=== PATIENT | female | born 1995 | race Caucasian/White ===

== ENCOUNTER 2017-11-22 21:47 | Emergency (ER) | payer BC, OTHER ==
[~2017-11-22] VITALS: Ht 165.1 cm; Wt 99.8 kg
--- OUTSIDE RECORDS SUMMARY | 2017-11-22 21:54 | XMS REPORT ---
Author CHACHO Tubbs [facility] eClinicalWorks Address Unknown Phone Unavailable Care Team Providers Care Religious Healer Name Role Phone CHACHO JONES CP Unavailable Allergies No Known Allergies Problems Problem Type Condition Code Onset Dates Condition Status Problem Routine health maintenance Z00.00 Active Problem Family history of diabetes mellitus Z83.3 Active Problem Encounter for contraceptive management, unspecified Z30.9 Active Assessment Hyperkalemia E87.5 Active Problem Family history of heart disease Z82.49 Active Problem Hyperkalemia E87.5 Active Medications No Known Medications Results No Known Results Summary Purpose eClinicalWorks Submission
--- OUTSIDE RECORDS SUMMARY | 2017-11-22 21:54 | XMS REPORT ---
Author Author ELDA ALLEN [facility] eClinicalWorks Address Unknown Phone Unavailable Care Team Providers Care Slip Operator Name Role Phone ELDA ALLEN CP Unavailable Allergies, Adverse Reactions, Alerts Substance Reaction Event Type N.K.D.A. Info Not Available Non Drug Allergy Problems Problem Type Condition Code Onset Dates Condition Status Assessment Family history of diabetes mellitus Z83.3 Active Assessment Family history of heart disease Z82.49 Active Problem Routine health maintenance Z00.00 Active Problem Family history of diabetes mellitus Z83.3 Active Problem Encounter for contraceptive management, unspecified Z30.9 Active Assessment Encounter for contraceptive management, unspecified Z30.9 Active Assessment Routine health maintenance Z00.00 Active Problem Family history of heart disease Z82.49 Active Problem Hyperkalemia E87.5 Active Medications Medication Code System Code Instructions Start Date End Date Status Dosage Sprintec [address] [facility] [id number] 0.25-35 MG-MCG Orally Once a day November 17, 2014 1 tablet Procedures Procedure Coding System Code Date ASSAY OF PROLACTIN CPT-4 36920 November 09, 2015 VENIPUNCT, ROUTINE* CPT-4 53397 November 09, 2015 Office Visit, Est Pt., Level 3 CPT-4 21129 November 09, 2015 GLYCATED HEMOGLOBIN TEST CPT-4 67325 November 09, 2015 URINE TEST CPT-4 14658 November 09, 2015 GONADOTROPIN (FSH) CPT-4 38964 November 09, 2015 LIPID PANEL CPT-4 46895 November 09, 2015 GONADOTROPIN (LH) CPT-4 99219 November 09, 2015 COMPLETE CBC W/AUTO DIFF WBC CPT-4 33934 November 09, 2015 ASSAY OF INSULIN CPT-4 67726 November 09, 2015 ASSAY THYROID STIM HORMONE CPT-4 18172 November 09, 2015 COMPREHEN METABOLIC PANEL CPT-4 53779 November 09, 2015 Vital Signs Date/Time: November 09, 2015 Temperature 99.0 F Weight 208.6 lbs Height 66 in BMI 33.67 Index Blood Pressure Diastolic 78 mmHg Blood Pressure Systolic 116 mmHg Cardiac Monitoring Heart Rate 70 bpm Results Name Result Date Reference Range Unit Abnormality Flag TEST, URINE (IN HOUSE) ----RESULTS negative [id number] ----Lot # [id number] ----Control + [id number] ----Exp date [id number] ROUTINE VENIPUNCTURE Summary Purpose eClinicalWorks Submission
--- NOTE | 2017-11-22 23:15 | ED Psychosocial ---
General Chief Complaint: Psych/Social Disorder Stated Complaint: PANIC ATTACK Nursing Triage Note: pt presents to er with complaint of panic attack. states she has never been treated for them, but has had them before. Source: patient, spouse (stewart) Exam Limitations: no limitations History of Present Illness Date Seen by Provider: Nov 22, 2017 Time Seen by Provider: 22:52 Initial Comments The patient presents to the ER by private conveyance with a chief complaint that tonight she was having a panic attack. She has a very brief history of panic attacks over the last 2-3 months where she has had 3 now. She's had her first 1 was not that bad but the second one was pretty bad and tonight was absolutely terrifying to her. Her fianc talked her down through some breathing exercises. She has never seen a doctor about this until now. She is not having any suicidal ideation nor she having any depression, loss of interest in her hobbies are interests. She is not on any medications. She does not use any recreational drugs. She says she does have a history of suicidal ideation and inpatient psychiatric hospitalization many many years ago but nothing related to suicide attempts it was from cutting. She has not been doing any cutting tonight. Allergies and Home Medications Patient Home Medication List Home Medication List Reviewed: Yes Constitutional: No chills, No diaphoresis EENTM: No ear discharge, No hearing loss, No ear pain Respiratory: No cough, No short of breath Cardiovascular: No chest pain, No edema Gastrointestinal: No abdominal pain, No constipation, No diarrhea Genitourinary: No discharge, No dysuria Past Zcmzcrn-Upvjzr-Aypqdx Hx Patient Social History Alcohol Use: Occasionally Uses Recreational Drug Use: Yes Drug of Choice: marijuana Smoking Status: Current Everyday Smoker Recent Foreign Travel: No Contact w/Someone Who Travel: No Recent Infectious Disease Expo: No Recent Hopitalizations: No Immunizations Up To Date PED Vaccines UTD: Yes Seasonal Allergies Seasonal Allergies: No Past Medical History Surgeries: No Respiratory: No Cardiac: No Neurological: No Genitourinary: No Gastrointestinal: No Musculoskeletal: No Endocrine: No HEENT: No Cancer: No Psychosocial: No Integumentary: No Blood Disorders: No Physical Exam Vital Signs Vital Signs - First Documented 11/22/17 22:10 Temp 98.2 Pulse 102 Resp 20 B/P (MAP) 128/82 (97) Pulse Ox 100 O2 Delivery Room Air Capillary Refill : Less Than 3 Seconds General Appearance: WD/WN, no apparent distress HEENT: PERRL/EOMI, pharynx normal Neck: full range of motion, normal inspection Respiratory: no respiratory distress, no accessory muscle use Cardiovascular: normal peripheral pulses, regular rate, rhythm, no edema Gastrointestinal: non tender, soft Extremities: non-tender, normal inspection, normal capillary refill Neurologic/Psychiatric: alert, oriented x 3 Behavior/Eye Contact: cooperative, good eye contact, normal speech Thoughts/Hallucinations: normal thought pattern, no apparent hallucination Skin: normal color, warm/dry Progress/Results/Core Measures Vital Signs/I&O 11/22/17 22:10 Temp 98.2 Pulse 102 Resp 20 B/P (MAP) 128/82 (97) Pulse Ox 100 O2 Delivery Room Air Blood Pressure Mean: 97 Progress Note : Time: 23:11 Progress Note We have discussed at length about getting an outpatient workup of her panic disorder area we have given her techniques to practice for cognitive behavioral therapy as well as counseling. We will provide her some Vistaril and she says she is going to follow up in the next couple weeks with a primary care provider so we'll put off doing any laboratory examination tonight. She is not currently having a panic attack. Departure Impression Primary Impression: Panic attack Disposition: 01 HOME, SELF-CARE Condition: Stable Departure-Patient Inst. Decision time for Depature: 23:14 Referrals: NO,LOCAL PHYSICIAN (PCP/Family) Primary Care Physician Patient Instructions: Panic Disorder (DC) Add. Discharge Instructions: You can use the Vistaril 1 tablet every 6 hours as needed for first sign of panic disorder. Follow-up with primary care physician in the next couple weeks to discuss further evaluation and looking for a medical cause of your panic disorder as well as referral for counseling. All discharge instructions reviewed with patient and/or family. Voiced understanding. Scripts Hydroxyzine Pamoate (Vistaril) 25 Mg Capsule 25 MG PO Q6H PRN for ANXIETY, #30 CAP 0 Refills Prov: JENISE ABARCA 11/22/17 JENISE ABARCA Nov 22, 2017 23:15
[2017-11-22] MEDS ORDERED: HYDR25CA PO (23:16)
[2017-11-22] MEDS ORDERED: RX-HYDROXYZINE PAMOATE 25 MG CAP #4 PO STA (23:17)
[2017-11-22 23:40] VITALS: BP 128/82
== END 2017-11-22 23:40 | disposition home or self-care (01) ==
LOC: ER 21:50
DX: F41.0 Panic disorder [episodic paroxysmal anxiety] (principal); F12.10 Cannabis abuse, uncomplicated; F17.200 Nicotine dependence, unspecified, uncomplicated; Z91.5 Personal history of self-harm
CPT/HCPCS: 99283

== ENCOUNTER 2017-12-01 11:17 | Emergency (ER) | payer BC ==
[~2017-12-01] VITALS: Ht 165.1 cm; Wt 99.8 kg
[~2017-12-01 11:17] MED LIST: HYDR25CA PO
[2017-12-01 12:01] LABS: BILIRUBIN,URINE NEGATIVE (NEGATIVE); CLARITY,URINE SLIGHTLY CLOUDY; COLOR,URINE YELLOW; GLUCOSE, URINE (UA) NEGATIVE (NEGATIVE); KETONES,URINE 2+ (NEGATIVE); LEUKOCYTE ESTERASE ,URINE 1+ (NEGATIVE); NITRITE,URINE NEGATIVE (NEGATIVE); PH,URINE 8 (5-9); PROTEIN,URINE NEGATIVE (NEGATIVE); UROBILINOGEN,URINE NORMAL (NORMAL)
[2017-12-01] MEDS ORDERED: SERT20OR PO (12:01)
[2017-12-01 12:04] LABS: HCG,QUALITATIVE URINE NEGATIVE (NEGATIVE)
[2017-12-01 12:10] LABS: AMORPHOUS SEDIMENT,UR MOD AMOR PHOSPHATE /LPF; BACTERIA,URINE FEW /HPF
[2017-12-01 12:14] LABS: AMPHETAMINE SCREEN, URINE NEGATIVE (NEGATIVE); BARBITURATE SCREEN URINE NEGATIVE (NEGATIVE); BENZODIAZEPINES SCREEN URINE NEGATIVE (NEGATIVE); CANNABINOID SCREEN, URINE NEGATIVE (NEGATIVE); COCAINE SCREEN URINE NEGATIVE (NEGATIVE); METHADONE STAT NEGATIVE (NEGATIVE); METHAMPHETAMINE SCREEN URINE S NEGATIVE (NEGATIVE); OPIATE SCREEN URINE NEGATIVE (NEGATIVE); OXYCODONE STAT NEGATIVE (NEGATIVE); PROPOXYPHENE STAT NEGATIVE (NEGATIVE); TRICYCLIC ANTIDEPRESSANTS SCRE NEGATIVE (NEGATIVE)
[2017-12-01 12:16] LABS: BASOPHILS % (AUTO) 0 % (0-10); EOSINOPHILS # (AUTO) 0.1 10^3/uL (0.0-0.3); EOSINOPHILS % (AUTO) 1 % (0-10); HEMATOCRIT 39 % (35-52); HEMOGLOBIN 13.5 G/DL (11.5-16.0); LYMPHOCYTES # (AUTO) 1.7 X 10^3 (1.0-4.0); LYMPHOCYTES % (AUTO) 24 % (12-44); MEAN CORPUSCULAR HEMOGLOBIN 29 PG (25-34); MEAN CORPUSCULAR HGB CONC 35 G/DL (32-36); MEAN CORPUSCULAR VOLUME 85 FL (80-99); MEAN PLATELET VOLUME 10.2 FL (7.4-10.4); MONOCYTES # (AUTO) 0.4 X 10^3 (0.0-1.0); MONOCYTES % (AUTO) 5 % (0-12); NEUTROPHILS # (AUTO) 4.9 X 10^3 (1.8-7.8); NEUTROPHILS % (AUTO) 69 % (42-75); PLATELET COUNT 296 10^3/uL (130-400); RED BLOOD COUNT 4.62 10^6/uL (4.35-5.85); RED CELL DISTRIBUTION WIDTH 12.7 % (10.0-14.5)
[2017-12-01 12:39] LABS: ALANINE AMINOTRANSFERASE 12 U/L (0-55); ALBUMIN 4.1 GM/DL (3.2-4.5); ALKALINE PHOSPHATASE 87 U/L (40-136); BILIRUBIN,TOTAL 0.8 MG/DL (0.1-1.0); BUN/CREATININE RATIO 13; CALCIUM 9.5 MG/DL (8.5-10.1); CARBON DIOXIDE 21 MMOL/L (21-32); CHLORIDE 109 MMOL/L (98-107); CREATININE SERUM 0.75 MG/DL (0.60-1.30); GFR ESTIMATED > 60; GLUCOSE 102 MG/DL (70-105); POTASSIUM 3.9 MMOL/L (3.6-5.0); SALICYLATE < 5.0 MG/DL (5.0-20.0); SODIUM 140 MMOL/L (135-145); TOTAL PROTEIN 7.3 GM/DL (6.4-8.2)
[2017-12-01 12:58] LABS: ACETAMINOPHEN < 10 UG/ML (10-30)
--- NOTE | 2017-12-01 13:34 | ED Psychosocial ---
General Chief Complaint: Psych/Social Disorder Stated Complaint: CP Nursing Triage Note: PATIENT STATES THAT SHE HAS BEEN HAVING PANIC ATTACKS OFF AND ON SINCE AUGUST WHEN SHE "GOT REALLY HIGH" AND DID "MARIJUANA LACED WITH SOMETHING ELSE." STATES HE CANT CALM DOWN, HAS PRESSURE IN HER HEAD. STATES THAT SHE HAS FEARS OF A HEART ATTACK BECAUSE SHE HAS HAD FAMILY MEMBERS HAVE HEART ATTACKS. SHE DOES NOT CURRENTLY HAVE PAIN IN HER CHEST. Source: patient Exam Limitations: no limitations History of Present Illness Date Seen by Provider: December 01, 2017 Time Seen by Provider: 13:34 Initial Comments 22 yo female patient presents to the ED with c/o having panic attacks intermittently since August after smoking "marijuana which she thinks was laced with something." Patient was seen in the emergency department by Dr. Rogers on 11/22/17 for similar symptoms. Patient was also seen yesterday by Natividad Fair APRN and prescribed Zoloft and clonazepam. Patient reports taking her first dose of Zoloft last night and taking 0.5 tablets of clonazepam last night 2 doses. Denies taking any of these medications today. Patient is supposed to follow-up with Natividad Fair APRN in one month. Patient denies current suicidal ideation, but states she does have suicidal thoughts that " come and go". Denies a plan to commit suicide. Denies homicidal ideation. Patient does report having a sore throat, nasal congestion, and cough over the last week. She has taken DayQuil a couple of times this week, but reports palpitations and worsened anxiety. Patient reports when she feels "panicky" she begins hyperventilating with subsequent chest pain, tingling in the extremities, and head pressure. Patient initially was concerned about having a heart attack due to multiple family members having heart attacks. Patient's mother is in the room and reports patient's "whole family" on her father's side has moderate to severe anxiety and depression. Patient does have a history of self-inflicted cutting, but denies any recently. Denies being under increased stress, however, states they moved into a new house within the last couple of weeks. Has noticed her symptoms being worse since moving. Timing/Duration: other (onset in August) Severity: moderate (moderate to severe symptoms intermittently.) Associated Symptoms: anxiety, impaired concentration, insomnia Allergies and Home Medications Allergies Coded Allergies: No Known Drug Allergies (Unverified , 11/22/17) Home Medications Amoxicillin 500 Mg Capsule, 1,000 MG PO TID Prescribed by: MARY CARRERO on 12/01/17 0300 Patient Home Medication List Home Medication List Reviewed: Yes (patient filled clonazepam 0.5 mg 1/2-1 tab po q6h prn anxiety on 11/30/17) Constitutional: No chills, No fever; malaise EENTM: nose congestion, throat pain; No ear pain, No hoarseness Respiratory: cough; No dyspnea on exertion, No phlegm, No short of breath, No wheezing Cardiovascular: chest pain; No edema; palpitations; No syncope Gastrointestinal: No abdominal pain, No constipation, No diarrhea; loss of appetite; No nausea, No vomiting Genitourinary: no symptoms reported Musculoskeletal: no symptoms reported Skin: no symptoms reported Psychiatric/Neurological: See HPI, Anxiety, Depressed; Denies Headache, Denies Numbness, Denies Paresthesia, Denies Seizure, Denies Tingling, Denies Weakness All Other Systems Reviewed Negative Unless Noted: Yes (Negative excepted noted.) Past Qwchyah-Zkbkmi-Ijurhm Hx Patient Social History Alcohol Use: Denies Use Recreational Drug Use: Yes Drug of Choice: marijuana Smoking Status: Never a Smoker 2nd Hand Smoke Exposure: No Recent Foreign Travel: No Contact w/Someone Who Travel: No Recent Infectious Disease Expo: No Recent Hopitalizations: No Physical Abuse: No Sexual Abuse: No Immunizations Up To Date PED Vaccines UTD: Yes Seasonal Allergies Seasonal Allergies: No Past Medical History Surgeries: No Respiratory: No Cardiac: No Neurological: No Genitourinary: No Gastrointestinal: No Musculoskeletal: No Endocrine: No HEENT: No Cancer: No Psychosocial: Yes (PANIC ATTACKS, self inflicted "cutting") Anxiety, Depression Nursing Suicide Risk Score: 0 Integumentary: No Blood Disorders: No Family Medical History Reviewed and Corrections made Psychiatric Problems (paternal grandmother, father, and siblings all suffer from depression and anxiety.) Physical Exam Vital Signs Vital Signs - First Documented 12/01/17 11:22 Temp 97.7 Pulse 81 Resp 18 B/P (MAP) 143/64 (90) Pulse Ox 99 O2 Delivery Room Air Capillary Refill : Less Than 3 Seconds General Appearance: WD/WN, no apparent distress HEENT: PERRL/EOMI, TMs normal, other ((+) nasal congestion with inflamed nasal mucosa bilaterally. (+) pharyngeal erythema with left tonsillar exudates. 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, no motor/sensory deficits, alert, oriented x 3, depressed affect Appearance/Memory: appropriate appearance, appropriate insight, neat, no memory impairment Behavior/Eye Contact: cooperative, avoids eye contact, decreased rate of speech Thoughts/Hallucinations: normal thought pattern, no apparent hallucination Skin: normal color, warm/dry Progress/Results/Core Measures Results/Orders Lab Results Laboratory Tests Test 12/01/17 11:53 12/01/17 12:00 Range/Units Urine Color YELLOW Urine Clarity SLIGHTLY CLOUDY Urine pH 8 5-9 Urine Specific [place] 1.010 L 1.016-1.022 Urine Protein NEGATIVE NEGATIVE Urine Glucose (UA) NEGATIVE NEGATIVE Urine Ketones 2+ H NEGATIVE Urine Nitrite NEGATIVE NEGATIVE Urine Bilirubin NEGATIVE NEGATIVE Urine Urobilinogen NORMAL NORMAL MG/DL Urine Leukocyte Esterase 1+ H NEGATIVE Urine RBC (Auto) NEGATIVE NEGATIVE Urine RBC NONE /HPF Urine WBC 2-5 /HPF Urine Squamous Epithelial Cells 2-5 /HPF Urine Crystals PRESENT H /LPF Urine Amorphous Sediment MOD [place]ITA PHOSPHATE H /LPF Urine Bacteria FEW H /HPF Urine Casts NONE /LPF Urine Mucus NEGATIVE /LPF Urine Culture Indicated NO Urine Test NEGATIVE NEGATIVE Urine Opiates Screen NEGATIVE NEGATIVE Urine Oxycodone Screen NEGATIVE NEGATIVE Urine Methadone Screen NEGATIVE NEGATIVE Urine Propoxyphene Screen NEGATIVE NEGATIVE Urine Barbiturates Screen NEGATIVE NEGATIVE Ur Tricyclic Antidepressants Screen NEGATIVE NEGATIVE Urine Phencyclidine Screen NEGATIVE NEGATIVE Urine Amphetamines Screen NEGATIVE NEGATIVE Urine Methamphetamines Screen NEGATIVE NEGATIVE Urine Benzodiazepines Screen NEGATIVE NEGATIVE Urine Cocaine Screen NEGATIVE NEGATIVE Urine Cannabinoids Screen NEGATIVE NEGATIVE White Blood Count 7.0 4.3-11.0 10^3/uL Red Blood Count 4.62 4.35-5.85 10^6/uL Hemoglobin 13.5 11.5-16.0 G/DL Hematocrit 39 35-52 % Mean Corpuscular Volume 85 80-99 FL Mean Corpuscular Hemoglobin 29 25-34 PG Mean Corpuscular Hemoglobin Concent 35 32-36 G/DL Red Cell Distribution Width 12.7 10.0-14.5 % Platelet Count 296 130-400 10^3/uL Mean Platelet Volume 10.2 7.4-10.4 FL Neutrophils (%) (Auto) 69 42-75 % Lymphocytes (%) (Auto) 24 12-44 % Monocytes (%) (Auto) 5 0-12 % Eosinophils (%) (Auto) 1 0-10 % Basophils (%) (Auto) 0 0-10 % Neutrophils # (Auto) 4.9 1.8-7.8 X 10^3 Lymphocytes # (Auto) 1.7 1.0-4.0 X 10^3 Monocytes # (Auto) 0.4 0.0-1.0 X 10^3 Eosinophils # (Auto) 0.1 0.0-0.3 10^3/uL Basophils # (Auto) 0.0 0.0-0.1 10^3/uL Sodium Level 140 135-145 MMOL/L Potassium Level 3.9 3.6-5.0 MMOL/L Chloride Level 109 H 98-107 MMOL/L Carbon Dioxide Level 21 21-32 MMOL/L Anion Gap 10 5-14 MMOL/L Blood Urea Nitrogen 10 7-18 MG/DL Creatinine 0.75 0.60-1.30 MG/DL Estimat Glomerular Filtration Rate > 60 BUN/Creatinine Ratio 13 Glucose Level 102 70-105 MG/DL Calcium Level 9.5 8.5-10.1 MG/DL Total Bilirubin 0.8 0.1-1.0 MG/DL Aspartate Amino Transf (AST/SGOT) 13 5-34 U/L Alanine Aminotransferase (ALT/SGPT) 12 0-55 U/L Alkaline Phosphatase 87 40-136 U/L Total Protein 7.3 6.4-8.2 GM/DL Albumin 4.1 3.2-4.5 GM/DL TSH [place] Testing 1.35 0.35-4.94 UIU/ML Salicylates Level < 5.0 L 5.0-20.0 MG/DL Acetaminophen Level < 10 L 10-30 UG/ML Serum Alcohol < 10 <10 MG/DL My Orders Orders - MARY CARRERO Ua Culture If Indicated (12/01/17 11:46) Cbc With Automated Diff (12/01/17 11:46) Comprehensive Metabolic Panel (12/01/17 11:46) Alcohol (12/01/17 11:46) Drug Screen Stat (Urine) (12/01/17 11:46) Acetaminophen (12/01/17 11:46) Salicylate (12/01/17 11:46) Ekg Tracing (12/01/17 11:46) Hcg,Qualitative Urine (12/01/17 11:46) Thyroid Analyzer (12/01/17 11:46) Lorazepam Tablet (Ativan Tablet) (12/01/17 14:00) Medications Given in ED Current Medications Medications Dose Ordered Sig/Jovon Route Start Time Stop Time Status Last Admin Dose Admin Lorazepam 0.5 mg ONCE ONCE PO 12/01/17 14:00 12/01/17 14:01 DC 12/01/17 14:01 0.5 MG Vital Signs/I&O 12/01/17 12/01/17 11:22 14:43 Temp 97.7 97.7 Pulse 81 81 Resp 18 18 B/P (MAP) 143/64 (90) 143/64 (90) Pulse Ox 99 99 O2 Delivery Room Air Blood Pressure Mean: 90 Initial ECG Impression Date: December 01, 2017 Initial ECG Impression Time: 11:55 Initial ECG Rate: 79 Initial ECG Rhythm: Normal Sinus Initial ECG Intervals: Normal Initial ECG Impression: Normal Initial ECG Comparisson: No Previous ECG Available Comment Sinus rhythm. No STEMI noted. ECG reviewed with Dr. Avila. Departure Communication (Admissions) [id number] patient case discussed with Dwayne (Natividad Fair APRN's nurse) at [facility]. Dwayne states Natividad can see the patient tomorrow at 3:20 p.m. in their office for recheck and further management. All laboratory and diagnostic findings discussed with the patient and family. plan for dsch to home. Patient case discussed with him Austin, he agrees with the plan of care. Impression Primary Impression: Anxiety Additional Impression: Pharyngitis, acute Qualified Codes: J02.9 - Acute pharyngitis, unspecified Disposition: 01 HOME, SELF-CARE Condition: Improved Departure-Patient Inst. Decision time for Depature: 14:24 Referrals: NO,LOCAL PHYSICIAN (PCP/Family) Primary Care Physician Patient Instructions: Anxiety, Adult (DC), Sore Throat, Adult (DC) Add. Discharge Instructions: All discharge instructions reviewed with patient and/or family. Voiced understanding. Medications as instructed. Tylenol uddz-bpi-gvpmdye 1000 mg by mouth every 6 hours for pain or headache. Do not exceed 3000 mg of Tylenol in 24 hours. Ibuprofen 800 mg by mouth every 8 hours as needed for pain or headache. Avoid using DayQuil or NyQuil. Try using saline nasal spray and Afrin nasal spray [id number] for nasal congestion. You may use throat lozenges for throat pain as instructed by the plant utilities engineer. Continue medications as prescribed by Natividad Fair APRN. Follow-up with Natividad Fair APRN at [facility] tomorrow (December 02) at 3:20 p.m. for recheck. An appointment has already been scheduled for your. Return to the emergency department, contact the Crisis line ([phone]), or call 911 for worsened symptoms, thoughts of harming yourself, thoughts of harming others, or any other concerns. Scripts Amoxicillin (Amoxicillin) 500 Mg Capsule 1000 MG PO TID, #42 CAP 0 Refills Prov: MARY CARRERO 12/01/17 Work/School Note: Work Release Form Date Seen in the Emergency Department: December 01, 2017 Return to Work: December 03, 2017 Restrictions: No Restrictions MARY CARRERO December 01, 2017 13:34
[2017-12-01] MEDS ORDERED: LORazepam 0.5 MG (ATIVAN) TABLET PO ONE (14:00)
[2017-12-01] MEDS ORDERED: AMOX500C2 PO (14:25)
[2017-12-01 14:43] VITALS: BP 143/64
== END 2017-12-01 14:45 | disposition home or self-care (01) ==
LOC: EDUNIT# 11:17 → ER 11:20
DX: F41.9 Anxiety disorder, unspecified (principal); J02.9 Acute pharyngitis, unspecified; F12.10 Cannabis abuse, uncomplicated; F32.9 Major depressive disorder, single episode, unspecified
CPT/HCPCS: 36415; 80053; 80306; 80320; 80329; 81000; 84443; 84703; 85025; 93005

== ENCOUNTER 2022-11-25 05:06 | Inpatient (IN) | payer MEDICAID ==
[~2022-11-25 05:06] MED LIST changes: +AMOX500C2 PO; +SERT20OR PO
[2022-11-25 05:24] VITALS: BP 131/79
[2022-11-25] MEDS ORDERED: D5 LR IV SOLUTION 1,000 ML IV SCH (06:15)
[2022-11-25 06:16] LABS: MEAN CORPUSCULAR VOLUME 88 fL (80-99)
[2022-11-25 06:17] LABS: BASOPHILS % (AUTO) 0 % (0-10); EOSINOPHILS % (AUTO) 0 % (0-10); HEMATOCRIT 36 % (35-52); LYMPHOCYTES # (AUTO) 1.6 10^3/uL (1.0-4.0); LYMPHOCYTES % (AUTO) 14 % (12-44); MEAN CORPUSCULAR HEMOGLOBIN 30 pg (25-34); MEAN CORPUSCULAR HGB CONC 34 g/dL (32-36); MEAN PLATELET VOLUME 13.1 fL (9.0-12.2); MONOCYTES # (AUTO) 0.6 10^3/uL (0.0-1.0); MONOCYTES % (AUTO) 6 % (0-12); NEUTROPHILS # (AUTO) 9.2 10^3/uL (1.8-7.8); NEUTROPHILS % (AUTO) 80 % (42-75); PLATELET COUNT 100 10^3/uL (130-400); WHITE BLOOD COUNT 11.5 10^3/uL (4.3-11.0)
--- NOTE | 2022-11-25 06:27 | History & Physical-OB ---
OB - Chief Complaint & HPI Date/Time Date of Admission: Date of Admission: Date seen by a Provider: November 25, 2022 Time Seen by a Provider: 06:45 Chief Complaint/History OB-Reason for Admission/Chief: Rupture of Membranes Expected Date of Delivery: November 30, 2022 Gestational Age in Weeks: 39 Gestational Age in Days: 2 Admission Nurse Assessment Rev: Yes Allergies and Home Medications Allergies Coded Allergies: No Known Drug Allergies (Unverified , 11/22/17) Patient Home Medication List Home Medication List Reviewed: Yes Amoxicillin (Amoxicillin) 500 Mg Capsule, 1,000 MG PO TID Prescribed by: MARY CARRERO on 12/01/17 1425 Sertraline HCl (Zoloft) 20 Mg/1 Ml Oral.conc, 20 MG PO, (Reported) Entered as Reported by: NAYE STACY on 12/01/17 1201 OB - History Hx of Present Care: Yes Ultrasounds: Normal mid trimester US Obstetrical Complications: None Medical Complications: None Patient Past Medical History no chronic medical problems Social History/Family History 2nd Hand Smoke Exposure: No OB - Admission Exam Physical Exam HEENT: Moist Membranes Heart: Rhythm Normal Lungs: Clear Abdomen: Gravid Cervical Dilatation: 2cm Effacement: 50% Station: -3 Membranes: Ruptured Amniotic Fluid: Clear Heart Rate: 140's Accelerations: Accelerations Present Intensity: Mild Labs Laboratory Tests Test 11/25/22 05:55 Range/Units OB - Assessment/Plan/Diagnosis Assessment Assessment: rupture of membranes (at 39 weeks gestation) Admission Dx 1. IUP at term 39 weeks with SROM Admission Status: Inpatient Order (span 2 midnights) Reason for Inpatient Admission: L&D Plan Plan: Expectant Management Other Plan -epidural if desired -pitocin if necessary BRODERICK ROSENBAUM MD November 25, 2022 06:27
[2022-11-25 06:28] LABS: SMEAR SCAN COMMENT YES
[2022-11-25] MEDS ORDERED: OXYTOCIN PRE-MIX DRIP 500 ML IV ONE ×3 (09:14→15:53)
[2022-11-25] MEDS ORDERED: fentaNYL 2 mcg/ml BUPIVA 0.125 100 ML ONE (11:19)
[2022-11-25] MEDS ORDERED: fentaNYL INJ 100 MCG/2 ML AMP ONE ×2 (11:36→15:28)
[2022-11-25] MEDS ORDERED: CITRIC ACID/SOB CIT (BICITRA) 30 ML UDC ONE (15:00)
[2022-11-25] MEDS ORDERED: FAMOTIDINE 20MG/2ML IV (PEPCID) ONE (15:00)
[2022-11-25] MEDS ORDERED: METOCLOPRAMIDE INJ 10 MG/2 ML (REGLAN) ONE (15:00)
[2022-11-25] MEDS ORDERED: NS (IVPB) 50 ML ONE (15:01)
[2022-11-25] MEDS ORDERED: ceFAZolin INJECTION 2,000 MG ONE (15:01)
[2022-11-25] MEDS ORDERED: LIDOCAINE PF 2% 5 ML (XYLOCAINE) VIAL ONE ×2 (15:11→15:29)
[2022-11-25] MEDS ORDERED: LIDOCAINE 1% INJ 10 ML VIAL ONE (15:11)
[2022-11-25] MEDS ORDERED: KETOROLAC 30 MG/ML VIAL ONE (15:29)
[2022-11-25] MEDS ORDERED: BUPIVACAINE 0.5% 30 ML (SENSORCAINE) VIAL ONE (15:29)
[2022-11-25] MEDS ORDERED: OXYTOCIN PRE-MIX DRIP 500 ML IV SCH ×2 (16:15→18:00)
[2022-11-25 17:30] VITALS: BP 115/70
[2022-11-25 18:00] VITALS: BP 132/77
[2022-11-25] MEDS ORDERED: TETANUS,DIPTH,PERTUSS P/F (BOOSTRIX) 0.5 ML VIAL IM SCH (18:00)
[2022-11-25] MEDS ORDERED: MEASLES,MUMPS,RUBELLA 1 EA INJ SC SCH (18:00)
[2022-11-25] MEDS ORDERED: HYDROcodone/APAP 5 MG/325 MG (LORTAB) TAB ONE (18:45)
[2022-11-25] MEDS ORDERED: NALOXONE 0.4 MG/ML 1 ML (NARCAN) VIAL IV PRN (18:45)
[2022-11-25] MEDS: HYDROcodone/APAP 5 MG/325 MG (LORTAB) TAB PO PRN (18:47)
[2022-11-25] MEDS: KETOROLAC 30 MG/ML VIAL IV SCH (20:29)
[2022-11-25] MEDS: DOCUSATE SODIUM 100 MG (COLACE) CAP PO SCH (20:29)
[2022-11-25 20:33] VITALS: BP 134/80
[2022-11-25] MEDS: CATHETER FLUSH 10 ML SYR IV SCH ×2 (20:55→21:38)
--- NOTE | 2022-11-25 22:31 | OPERATIVE REPORT ---
PREOPERATIVE DIAGNOSES:. 1. A 27-year-old G1, P0 at 39 weeks and 2 days gestation. 2. intolerance of labor. POSTOPERATIVE DIAGNOSES: 1. A 27-year-old G1, P0 at 39 weeks and 2 days gestation. 2. intolerance of labor. PROCEDURE: Primary low transverse section. SURGEON: Gerry Funes DO. PAPER COATER: Dr. Chau Adler, who was necessary for manipulation and retraction throughout the procedure. ANESTHESIA: Epidural, which was bolused. ESTIMATED BLOOD LOSS: 400 mL. URINE OUTPUT: 100 mL clear at the end of the procedure. FLUIDS: 1000 mL lactated Ringer's solution. FINDINGS: A live male infant weighing 7 pounds 8 ounces, Apgars of 8 and 9. Grossly normal appearing uterus, bilateral fallopian tubes and ovaries. SPECIMEN SENT: Placenta. INDICATIONS FOR PROCEDURE: This 27-year-old female, who is a patient admitted for active labor by Dr. Adler. There were some prolonged heart rate decelerations. I was contacted to come and perform a urgently as the patient only made a dilation to 4 cm and was having prolonged heart rate deceleration, there was recovery. We were able to get the patient into the operating room where heart rate was found to be within normal limits; however, due to the recurrent distress, we decided to proceed. Risks had been discussed with the patient in detail and after all of her questions were answered, she was agreeable to proceed. Consent was obtained. The patient was taken to the operating room. OPERATIVE DESCRIPTION IN DETAIL Once in the operating room, epidural analgesia was found to be adequate, was placed in supine position with leftward tilt, prepped and draped in sterile fashion. A timeout was performed. Anesthesia was tested. I then made a Pfannenstiel skin incision with a knife and carried down to the underlying fascia using Bovie cautery. Fascial incision extended laterally using Bovie cautery. Superior aspect of fascial incision was then grasped with Yobani clamps, tented up and dissected off the underlying rectus muscles. The inferior aspect of the fascial incision was then grasped with Yobani clamps, tented up and dissected off the underlying rectus muscles. Rectus muscles were dissected down the midline using sharp dissection, which exposed the peritoneum, which I entered bluntly and extended using blunt traction. Jose Manuel ring retractor was placed in the peritoneal incision, which offers excellent lateral sidewall retraction. I identified lower uterine segment was found to be thinned out and make a low transverse incision to the vesicouterine peritoneum and bluntly dissected this off the lower uterine segment, creating a bladder flap and then proceeded with my myotomy until membranes are visualized, at which point I extended uterine incision laterally and superiorly using bandage scissors. Amniotomy was performed and in the process of doing this, the was found vertex presentation. With gentle fundal pressure, the 's head elevated up the incision where it was delivered through the incision, the nares and oropharynx were bulb suctioned. Anterior and posterior shoulders were delivered. The infant was brought to the operative field where the cord was doubly clamped and cut and infant was handed off to waiting nurses in attendance and Dr. Adler, who was present for delivery. Cord blood was collected. Three-vessel cord with intact placenta was delivered spontaneously thereafter. IV Pitocin was initiated to facilitate uterine contraction. Uterine fundus confirmed by manual massage. The uterus was exteriorized and cleared of all endometrial clots and debris. I then proceeded with closing the uterine incision using 0 Vicryl suture in a running locked fashion. Second imbricating 0 Monocryl was placed. Excellent hemostasis was noted after doing this. I then placed the uterus back in the pelvis and copiously irrigated the pelvis using normal saline. Once again, there was no active bleeding from my dissection planes. I placed Interceed antiadhesive over my low transverse incision. I removed the Jose Manuel ring retractor and then proceeded with closing the peritoneum using 3-0 Vicryl suture in a running fashion. Rectus muscle was reapproximated using 3-0 Vicryl suture in interrupted fashion. Fascia was reapproximated using 0 Vicryl suture in a running fashion. The subcutaneous tissue was reapproximated using 3-0 plain in interrupted subcutaneous stitch and the skin was reapproximated using 4-0 Monocryl running subcuticular. Dermabond was applied to incision, sterile dressing with adhesive white tape. The patient tolerated the procedure well and sent to recovery area in stable condition. Lap and sponge counts were correct at the end of the procedure. Instrument counts correct as well. Two grams of Ancef given infection prophylaxis. Job ID: [id number] DocumentID: [id number] Dictated Date: 11/25/2022 16:05:43 Energy Assistant Date: 11/25/2022 22:28:00 Dictated By: DO PAUL BAKER
[2022-11-26 00:17] VITALS: BP 120/66
[2022-11-26 03:59] VITALS: BP 125/65
[2022-11-26] MEDS: KETOROLAC 30 MG/ML VIAL IV SCH ×2 (03:59→09:30)
[2022-11-26] MEDS: CATHETER FLUSH 10 ML SYR IV SCH (03:59)
[2022-11-26 06:00] LABS: BASOPHILS % (AUTO) 0 % (0-10); EOSINOPHILS % (AUTO) 0 % (0-10); HEMATOCRIT 31 % (35-52); HEMOGLOBIN 10.1 g/dL (11.5-16.0); LYMPHOCYTES # (AUTO) 1.2 10^3/uL (1.0-4.0); LYMPHOCYTES % (AUTO) 11 % (12-44); MEAN CORPUSCULAR HEMOGLOBIN 29 pg (25-34); MEAN CORPUSCULAR HGB CONC 33 g/dL (32-36); MEAN CORPUSCULAR VOLUME 89 fL (80-99); MONOCYTES # (AUTO) 0.7 10^3/uL (0.0-1.0); MONOCYTES % (AUTO) 6 % (0-12); NEUTROPHILS # (AUTO) 9.3 10^3/uL (1.8-7.8); NEUTROPHILS % (AUTO) 82 % (42-75); PLATELET COUNT 114 10^3/uL (130-400); WHITE BLOOD COUNT 11.3 10^3/uL (4.3-11.0)
[2022-11-26 09:55] VITALS: BP 122/69
[2022-11-26] MEDS: DOCUSATE SODIUM 100 MG (COLACE) CAP PO SCH ×2 (10:00→21:05)
[2022-11-26] MEDS: HYDROcodone/APAP 5 MG/325 MG (LORTAB) TAB PO PRN ×2 (10:00→21:05)
--- NOTE | 2022-11-26 11:43 | Anesthesia-Regional Post-Op ---
Regional Patient Condition Mental Status: Alert, Oriented x3 Circulation: Same as Pre-Op Headache: Absent Sensation: Full Recovery Motor Block: Absent Post Op Complications Complications None Follow Up Care/Instructions Patient Instructions None needed. Anesthesia/Patient Condition Patient is doing well, no complaints, stable vital signs, no apparent adverse anesthesia problems. No complications reported per nursing. STEVEN MAS CRNA November 26, 2022 11:43
[2022-11-26 15:59] VITALS: BP 134/77
[2022-11-26] MEDS: IBUPROFEN 600 MG (MOTRIN) TAB PO SCH ×2 (15:59→23:44)
[2022-11-26 21:02] VITALS: BP 122/71
[2022-11-27 03:26] VITALS: BP 117/72
[2022-11-27] MEDS: IBUPROFEN 600 MG (MOTRIN) TAB PO SCH ×2 (06:10→11:57)
--- NOTE | 2022-11-27 07:32 | Postpartum Progress Note ---
Note Note Day # 2 Subjective: Patient is without complaints. Ambulating, voiding. Tolerating a regular diet without nausea or vomiting. Normal lochia. Pain is well controlled with oral pain medications. Objective: Physical Exam: General - Alert and oriented, no apparent distress Abdomen - Soft, appropriately tender to palpation, non-distended, fundus firm at umbilicus Extremities - no edema, negative Filippo's bilaterally Incision- c/d/i Assessment: POD 2 PLTCS Acute blood loss anemia Plan: Routine care. Encourage breast feeding. Encourage ambulation. Ferrous sulfate supplementation. Plan for discharge today Vitals - Labs Vital Signs - I&O Vital Signs Date Time Temp Pulse Resp B/P (MAP) Pulse Ox O2 Delivery O2 Flow Rate FiO2 11/27/22 03:26 36.2 74 18 117/72 (87) 98 Room Air 11/26/22 21:02 36.7 86 20 122/71 (88) 100 Room Air 11/26/22 15:59 36.6 92 18 134/77 (96) 99 Room Air 11/26/22 09:55 36.2 100 18 122/69 (86) 97 Room Air NEEMA HERNANDEZ DO November 27, 2022 07:32
[2022-11-27] MEDS ORDERED: DOCU100C37 PO (07:33)
[2022-11-27] MEDS ORDERED: ACHD5005 PO (07:33)
[2022-11-27] MEDS ORDERED: IBUP-844 PO (07:33)
--- NOTE | 2022-11-27 07:33 | Discharge Inst-Women's Service ---
Discharge Inst-Women's Serv Depart Medication/Instructions New, Converted or Re-Newed RX: Transmitted to Pharmacy Final Diagnosis POD 2 PLTCS Problems Reviewed?: Yes Consults/Follow Up Additional Follow Up: Yes Orders/Referrals Dr. Funes in 7-[address] Adler in 6 weeks Activity Activity: Activity as Tolerated NO SMOKING: NO SMOKING Nothing Inside Vagina: No Douching, No Ayr, No Tampons Diet Discharge Diet: No Restrictions Symptoms to Report to : Bleeding Excessive, Pain Increased, Fever Over 101 Degrees F, Vaginal Bleeding Increase, Questions/Concerns For Any Problems or Questions: Contact Your Physician Skin/Wound Care Infection Signs and Symptoms: Increased Redness, Foul Odor of Wound, Increased Drainage, Skin Itchy or Has a Rash, Increased Swelling, Temperature Above 101 F Operative Area Clean and Dry: Keep Incision Clean/Dry Stitches/Tracie/Dermabond: Dermabond, Care of Stitches Bathing Instructions: NEEMA Tovar DO November 27, 2022 07:33
[2022-11-27 08:20] VITALS: BP 135/60
[2022-11-27] MEDS: DOCUSATE SODIUM 100 MG (COLACE) CAP PO SCH (08:20)
[2022-11-27] MEDS: HYDROcodone/APAP 5 MG/325 MG (LORTAB) TAB PO PRN (11:57)
[2022-11-27 12:25] VITALS: BP 135/60
== END 2022-11-27 12:25 | disposition home or self-care (01) | DRG 787 ==
LOC: WSo 05:06 → LDRP 05:11 → WSo 05:32 → LDRP 05:33 → WS 11-26 21:29
PROVIDERS: ADMIT Family Medicine; ATTEND Family Medicine
PROC: 10D00Z1 Extraction of Products of Conception, Low, Open Approach (ICD-10-PCS; principal; 2022-11-25 15:17)
DX: O77.9 Labor and delivery complicated by fetal stress, unspecified (principal); D62 Acute posthemorrhagic anemia; Z3A.39 39 weeks gestation of pregnancy; Z37.0 Single live birth; O90.81 Anemia of the puerperium
CPT/HCPCS: 36415; 85025; 86780; 86850; 86900; 86901; 94664; 99212